=== PATIENT | female | born 1935 | race Caucasian/White ===

== ENCOUNTER 2017-03-09 20:20 | Inpatient (IN) | payer OTHER ==
[~2017-03-09] VITALS: Ht 172.7 cm; Wt 85.7 kg
[2017-03-09 21:22] LABS: HEMATOCRIT 42.4 % (36.0-46.0); MCH 29.8 PG (29.0-34.0); MCHC 32.3 G/DL (30.0-36.0); MCV 92.2 FL (83-99); MEAN PLAT.VOLUME 9.1 uM^3 (9.5-12.4); PLATELET COUNT 340 K/uL (156-360); RBC DIS.WIDTH-CV 15.2 % (11.8-14.6); RBC DIS.WIDTH-SD 51.2 % (39-53); WHITE BLOOD COUNT 14.1 K/uL (4.1-10.2)
[2017-03-09 21:35] LABS: CHLORIDE 104 mEq/L (99-109); POTASSIUM 4.3 mEq/L (3.7-5.4); SODIUM 143 mEq/L (136-147)
[2017-03-09 21:36] LABS: GLUCOSE 160 mg/dL (70-99)
[2017-03-09 21:38] LABS: ANION GAP 19 MEQ/L (2-14)
[2017-03-09 21:40] LABS: GFR ESTIMATE (CALCULATED) 36 mL/min/
[2017-03-09 21:41] LABS: UREA NITROGEN (BUN) 25 mg/dL (9-23)
[2017-03-09 21:42] LABS: TROP-I INTERPRETATION NEGATIVE; TROPONIN-I < 0.01 ng/mL (0.0-0.30)
[2017-03-09 22:21] LABS: ADD MIUA? YES; BILIRUBIN NEGATIVE; BLOOD MODERATE; COLOR AMBER ((YELLOW)); GLUCOSE (STRIP) NEGATIVE; KETONES NEGATIVE; LEUKOCYTES LARGE; NITRITE NEGATIVE; PROTEIN (STRIP) 100; SPECIFIC GRAVITY 1.015 (1.000-1.030); UROBILINOGEN 0.2 MG/DL (0.2-1.0)
[2017-03-09 23:12] LABS: BACTERIA 3+ /HPF; CASTS PRESENT /LPF; CRYSTALS NONE SEEN; EPITHELIAL CELLS RARE /HPF; MUCUS 1+ /LPF; UCUL ADDED? YES; WAXY CASTS 0-5 /LPF; WHITE BLOOD CELLS TNTC /HPF (0-5)
[2017-03-09 23:17] LABS: MAGNESIUM 2.5 mg/dL (1.3-2.7)
[2017-03-09 23:20] LABS: TOTAL BILIRUBIN 0.3 mg/dL (0.0-1.0)
[2017-03-09 23:21] LABS: ALKALINE PHOSPHATASE 75 IU/L (3-129)
[2017-03-09 23:24] LABS: DIRECT BILIRUBIN 0.1 mg/dL (0.0-0.3)
[2017-03-09 23:45] LABS: EOSINOPHIL (%) 0.8 % (0-5); EOSINOPHIL COUNT 0.1 K/uL (0-0.3); HEMATOCRIT 39.7 % (36.0-46.0); IMMATURE GRANULOCYTE (%) 0.6 % (0.0-0.7); IMMATURE GRANULOCYTE COUNT 0.1 K/uL; INSTRUMENT ABS NEUTROPHIL CT 11.9 K/uL; LYMPHOCYTE COUNT 1.9 K/uL (1.0-2.8); MCH 29.4 PG (29.0-34.0); MCHC 31.7 G/DL (30.0-36.0); MCV 92.8 FL (83-99); MONOCYTE (%) 6.8 % (3-12); NEUTROPHIL COUNT 11.9 K/uL (1.8-6.4); RBC DIS.WIDTH-CV 15.3 % (11.8-14.6); RED BLOOD COUNT 4.28 M/uL (3.80-5.20); WHITE BLOOD COUNT 15.1 K/uL (4.1-10.2)
[2017-03-10] VITALS (7 sets, daily range): BP systolic 137–162; BP diastolic 66–85
[2017-03-10 00:06] LABS: CARBON DIOXIDE (BICARBONATE) 23.4 MEQ/L (20-31)
[2017-03-10 00:11] LABS: PROTHROMBIN TIME 10.6 SEC (10.2-12.9)
[2017-03-10 00:14] LABS: PTT 26.1 SEC (25-37)
[2017-03-10 00:28] LABS: SALICYLATE < 5.0 MG/DL (15-30)
[2017-03-10 00:44] LABS: MEAN PLAT.VOLUME 9.6 uM^3 (9.5-12.4); PLAT.SUFFICIENCY ADEQUATE; PLATELET COUNT 271 K/uL (156-360)
[2017-03-10 07:02] LABS: POINT-OF-CARE METER ID UU14117124
[2017-03-10 07:50] LABS: ALKALINE PHOSPHATASE 65 IU/L (3-129); ANION GAP 19 MEQ/L (2-14); CHLORIDE 107 MEQ/L (99-109); GFR ESTIMATE (CALCULATED) 51 mL/min/; GLUCOSE 138 mg/dL (70-99); POTASSIUM 4.3 MEQ/L (3.7-5.4); SAMPLE HEMOLYSIS CHECK 0; SAMPLE ICTERIC CHECK 0; SAMPLE LIPEMIA CHECK 0; SODIUM 141 MEQ/L (136-147); TOTAL BILIRUBIN 0.4 MG/DL (0.0-1.0); UREA NITROGEN (BUN) 24 mg/dL (9-23)
[2017-03-10 09:11] LABS: HEMATOCRIT 37.1 % (36.0-46.0); MCH 29.3 PG (29.0-34.0); MCHC 32.1 G/DL (30.0-36.0); MCV 91.4 FL (83-99); MEAN PLAT.VOLUME 9.3 uM^3 (9.5-12.4); PLATELET COUNT 324 K/uL (156-360); RBC DIS.WIDTH-CV 15.2 % (11.8-14.6); RBC DIS.WIDTH-SD 50.7 % (39-53); RED BLOOD COUNT 4.06 M/uL (3.80-5.20); WHITE BLOOD COUNT 12.7 K/uL (4.1-10.2)
[2017-03-10 11:58] LABS: POINT-OF-CARE METER ID UU14188577
[2017-03-10] MEDS ORDERED: METFORMIN HCL500 MG PO (12:10)
[2017-03-10] MEDS ORDERED: LIPITOR10 MG PO (12:14)
[2017-03-10] MEDS ORDERED: MEMANTINE HCL5 MG PO (12:23)
[2017-03-10] MEDS ORDERED: DONEPEZIL HCL10 MG PO ×2 (12:27→14:52)
[2017-03-10] MEDS ORDERED: ASPIRIN325 MG PO (12:28)
[2017-03-10] MEDS ORDERED: HUMALOG MI100 UNIT/1 SQ ×2 (12:38→12:39)
[2017-03-10] MEDS ORDERED: LISINOPRIL-HCT1 EACH PO (14:49)
[2017-03-10 15:24] LABS: ANION GAP 15 MEQ/L (2-14); CHLORIDE 104 MEQ/L (99-109); GFR ESTIMATE (CALCULATED) 51 mL/min/; GLUCOSE 186 mg/dL (70-99); POTASSIUM 4.2 MEQ/L (3.7-5.4); SAMPLE HEMOLYSIS CHECK 0; SAMPLE ICTERIC CHECK 0; SAMPLE LIPEMIA CHECK 0; SODIUM 139 MEQ/L (136-147); UREA NITROGEN (BUN) 21 mg/dL (9-23)
[2017-03-10 17:57] LABS: POINT-OF-CARE METER ID UU14188577
[2017-03-10 22:23] LABS: POINT-OF-CARE METER ID UU14208753
[2017-03-11 05:58] VITALS: BP 162/84
[2017-03-11 06:05] LABS: POINT-OF-CARE METER ID UU14117124
[2017-03-11 06:50] LABS: BASOPHIL COUNT 0.1 K/uL (0-0.1); EOSINOPHIL (%) 4.7 % (0-5); EOSINOPHIL COUNT 0.5 K/uL (0-0.3); HEMATOCRIT 36.9 % (36.0-46.0); IMMATURE GRANULOCYTE (%) 0.6 % (0.0-0.7); IMMATURE GRANULOCYTE COUNT 0.1 K/uL; INSTRUMENT ABS NEUTROPHIL CT 5.8 K/uL; LYMPHOCYTE COUNT 3.5 K/uL (1.0-2.8); MCHC 32.8 G/DL (30.0-36.0); MCV 91.3 FL (83-99); MEAN PLAT.VOLUME 9.4 uM^3 (9.5-12.4); MONOCYTE (%) 6.5 % (3-12); MONOCYTE COUNT 0.7 K/uL (0-0.8); NEUTROPHIL COUNT 5.8 K/uL (1.8-6.4); PLATELET COUNT 315 K/uL (156-360); RBC DIS.WIDTH-CV 15.2 % (11.8-14.6); RBC DIS.WIDTH-SD 50.8 % (39-53); RED BLOOD COUNT 4.04 M/uL (3.80-5.20); WHITE BLOOD COUNT 10.6 K/uL (4.1-10.2)
[2017-03-11 07:39] LABS: ALKALINE PHOSPHATASE 63 IU/L (3-129); ANION GAP 12 MEQ/L (2-14); CHLORIDE 106 MEQ/L (99-109); GFR ESTIMATE (CALCULATED) 57 mL/min/; GLUCOSE 162 mg/dL (70-99); POTASSIUM 4.1 MEQ/L (3.7-5.4); SAMPLE HEMOLYSIS CHECK 0; SAMPLE ICTERIC CHECK 0; SAMPLE LIPEMIA CHECK 0; SODIUM 141 MEQ/L (136-147); UREA NITROGEN (BUN) 20 mg/dL (9-23)
[2017-03-11 07:41] LABS: TOTAL BILIRUBIN 0.3 MG/DL (0.0-1.0)
[2017-03-11 08:04] VITALS: BP 182/82
[2017-03-11 11:31] LABS: POINT-OF-CARE METER ID UU14188577
[2017-03-11 11:53] VITALS: BP 152/86
[2017-03-11 16:37] VITALS: BP 164/76
[2017-03-11 16:38] LABS: POINT-OF-CARE METER ID UU14188577
[2017-03-11 19:27] VITALS: BP 140/82
[2017-03-11 22:03] LABS: POINT-OF-CARE METER ID UU14117124
[2017-03-11 23:45] VITALS: BP 190/98
[2017-03-12 03:34] VITALS: BP 136/80
[2017-03-12 07:07] LABS: ANION GAP 11 MEQ/L (2-14); CHLORIDE 108 MEQ/L (99-109); POTASSIUM 3.6 MEQ/L (3.7-5.4); SAMPLE HEMOLYSIS CHECK 0; SAMPLE ICTERIC CHECK 0; SAMPLE LIPEMIA CHECK 0; SODIUM 141 MEQ/L (136-147)
[2017-03-12 07:13] LABS: GFR ESTIMATE (CALCULATED) > 59 mL/min/; GLUCOSE 140 mg/dL (70-99); UREA NITROGEN (BUN) 15 mg/dL (9-23)
[2017-03-12] MEDS ORDERED: CEFTIN500 MG PO (07:18)
[2017-03-12 07:25] LABS: HEMATOCRIT 38.6 % (36.0-46.0); MCH 29.5 PG (29.0-34.0); MCHC 32.9 G/DL (30.0-36.0); MCV 89.8 FL (83-99); MEAN PLAT.VOLUME 10.2 uM^3 (9.5-12.4); PLATELET COUNT 267 K/uL (156-360); RBC DIS.WIDTH-CV 15.2 % (11.8-14.6); RBC DIS.WIDTH-SD 50.4 % (39-53); WHITE BLOOD COUNT 10.3 K/uL (4.1-10.2)
[2017-03-12 08:17] VITALS: BP 198/100
[2017-03-12 11:30] VITALS: BP 180/90
[2017-03-12 16:15] VITALS: BP 148/80
== END 2017-03-12 18:37 | disposition home health service (06) | DRG 872 ==
LOC: EME 20:20 → EDOF 23:29 → ENRESERV 23:30 → CANRESERV 23:55 → ENRESERV 23:55 → 3EAST 03-10 01:13 → EDOF 03-10 01:13 → ENRESERV 03-10 01:17 → 3EAST 03-10 03:17
PROVIDERS: Emergency Medicine; Hospitalist; Pediatrics; Physician Assistant Medical
DX: A41.9 Sepsis, unspecified organism (principal); N39.0 Urinary tract infection, site not specified; N17.9 Acute kidney failure, unspecified; E87.2 Acidosis; R55 Syncope and collapse; E11.65 Type 2 diabetes mellitus with hyperglycemia; F03.90 Unspecified dementia, unspecified severity, without behavioral disturbance, psychotic disturbance, mood disturbance, and anxiety; I10 Essential (primary) hypertension; E78.5 Hyperlipidemia, unspecified; E66.9 Obesity, unspecified; Z96.649 Presence of unspecified artificial hip joint; Z91.81 History of falling; Z90.13 Acquired absence of bilateral breasts and nipples; Z85.3 Personal history of malignant neoplasm of breast; Z80.3 Family history of malignant neoplasm of breast; Z68.28 Body mass index [BMI] 28.0-28.9, adult; Z79.4 Long term (current) use of insulin; Z79.84 Long term (current) use of oral hypoglycemic drugs; Z79.82 Long term (current) use of aspirin
CPT/HCPCS: 71010; 74176; 80048; 80048 91; 80053; 80076; 81003; 82803; 82948; 83605; 83735; 84484; 85025; 85027; 85610; 85730; 87040; 87077; 87086; 87186; 93005; 99281; 99285; G0378; G0480; J0360; J0696; J1644; J1815; J7030; J7050; J7120

== ENCOUNTER 2017-08-26 10:04 | Emergency (ER) | payer OTHER ==
[~2017-08-26] VITALS: Ht 170.2 cm; Wt 85.0 kg
[~2017-08-26 10:04] MED LIST: ASPIRIN325 MG PO; CEFTIN500 MG PO; DONEPEZIL HCL10 MG PO; HUMALOG MI100 UNIT/1 SQ; LIPITOR10 MG PO; LISINOPRIL-HCT1 EACH PO; MEMANTINE HCL5 MG PO; METFORMIN HCL500 MG PO
[2017-08-26 10:59] LABS: BASOPHIL (%) 0.5 % (0-1); BASOPHIL COUNT 0.1 K/uL (0-0.1); EOSINOPHIL (%) 2.8 % (0-5); EOSINOPHIL COUNT 0.3 K/uL (0-0.3); HEMATOCRIT 36.3 % (36.0-46.0); HEMOGLOBIN 11.7 G/DL (11.9-15.5); IMMATURE GRANULOCYTE (%) 0.6 % (0.0-0.7); LYMPHOCYTE COUNT 2.4 K/uL (1.0-2.8); MCHC 32.2 G/DL (30.0-36.0); MCV 93.1 FL (83-99); MONOCYTE COUNT 0.6 K/uL (0-0.8); NEUTROPHIL (%) 64.1 % (45-76); PLATELET COUNT 279 K/uL (156-360); RBC DIS.WIDTH-CV 15.5 % (11.8-14.6); RBC DIS.WIDTH-SD 53.1 % (39-53); WHITE BLOOD COUNT 9.4 K/uL (4.1-10.2)
[2017-08-26 11:07] LABS: CHLORIDE 106 mEq/L (99-109); POTASSIUM 3.6 mEq/L (3.7-5.4); SODIUM 141 mEq/L (136-147)
[2017-08-26 11:08] LABS: GLUCOSE 180 mg/dL (70-99)
[2017-08-26 11:12] LABS: CREATININE 1.4 mg/dL (0.6-1.3); GFR ESTIMATE (CALCULATED) 39 mL/min/
[2017-08-26 11:13] LABS: UREA NITROGEN (BUN) 24 mg/dL (9-23)
[2017-08-26 11:18] LABS: TROP-I INTERPRETATION NEGATIVE; TROPONIN-I 0.01 ng/mL (0.0-0.30)
[2017-08-26 12:12] LABS: APPEARANCE SL.HAZY ((CLEAR)); BILIRUBIN NEGATIVE; BLOOD SMALL; COLOR YELLOW ((YELLOW)); GLUCOSE (STRIP) NEGATIVE; KETONES NEGATIVE; LEUKOCYTES MODERATE; NITRITE POSITIVE; PROTEIN (STRIP) 100; SPECIFIC GRAVITY 1.012 (1.000-1.030); UROBILINOGEN 0.2 MG/DL (0.2-1.0)
[2017-08-26 12:47] LABS: BACTERIA 3+ /HPF; EPITHELIAL CELLS RARE /HPF; HYALINE CASTS 0-5 /LPF; MUCUS TRACE /LPF; UCUL ADDED? YES
[2017-08-26 14:04] VITALS: BP 112/58
== END 2017-08-26 14:04 ==
LOC: EME 10:04
PROVIDERS: Emergency Medicine
DX: R55 Syncope and collapse (principal); N39.0 Urinary tract infection, site not specified; F03.90 Unspecified dementia, unspecified severity, without behavioral disturbance, psychotic disturbance, mood disturbance, and anxiety; E11.9 Type 2 diabetes mellitus without complications; Z79.4 Long term (current) use of insulin; I10 Essential (primary) hypertension; Z79.82 Long term (current) use of aspirin
CPT/HCPCS: 80048; 81003; 84484; 85025; 87077; 87086; 87186; 93005; 99281; 99284; J7030

== ENCOUNTER 2017-09-15 10:05 | Inpatient (IN) | payer OTHER ==
[~2017-09-15] VITALS: Ht 170.2 cm; Wt 94.3 kg
[2017-09-15 10:53] LABS: BASOPHIL (%) 0.6 % (0-1); BASOPHIL COUNT 0.1 K/uL (0-0.1); EOSINOPHIL (%) 3.3 % (0-5); EOSINOPHIL COUNT 0.4 K/uL (0-0.3); HEMATOCRIT 39.1 % (36.0-46.0); HEMOGLOBIN 12.4 G/DL (11.9-15.5); IMMATURE GRANULOCYTE (%) 0.6 % (0.0-0.7); LYMPHOCYTE (%) 34.2 % (15-42); LYMPHOCYTE COUNT 3.7 K/uL (1.0-2.8); MCH 29.7 PG (29.0-34.0); MCHC 31.7 G/DL (30.0-36.0); MCV 93.5 FL (83-99); MONOCYTE (%) 5.5 % (3-12); MONOCYTE COUNT 0.6 K/uL (0-0.8); NEUTROPHIL (%) 55.8 % (45-76); NEUTROPHIL COUNT 6.1 K/uL (1.8-6.4); PLATELET COUNT 281 K/uL (156-360); RBC DIS.WIDTH-CV 15.5 % (11.8-14.6); RBC DIS.WIDTH-SD 53.7 % (39-53); RED BLOOD COUNT 4.18 M/uL (3.80-5.20); WHITE BLOOD COUNT 10.8 K/uL (4.1-10.2)
[2017-09-15 11:01] LABS: PTT 20.5 SEC (25-37)
[2017-09-15 11:04] LABS: ALBUMIN 3.7 g/dL (3.2-4.8); CHLORIDE 109 mEq/L (99-109); POTASSIUM 3.6 mEq/L (3.7-5.4); SODIUM 144 mEq/L (136-147)
[2017-09-15 11:05] LABS: MAGNESIUM 1.9 mg/dL (1.3-2.7)
[2017-09-15 11:06] LABS: GLUCOSE 193 mg/dL (70-99)
[2017-09-15 11:07] LABS: TOTAL PROTEIN 6.6 g/dL (6.4-8.3)
[2017-09-15 11:08] LABS: TOTAL BILIRUBIN 0.3 mg/dL (0.0-1.0)
[2017-09-15 11:10] LABS: ALKALINE PHOSPHATASE 68 IU/L (3-129); CREATININE 1.4 mg/dL (0.6-1.3); GFR ESTIMATE (CALCULATED) 39 mL/min/
[2017-09-15 11:11] LABS: UREA NITROGEN (BUN) 24 mg/dL (9-23)
[2017-09-15 11:12] LABS: AST (GOT) 12 IU/L (2-34)
[2017-09-15 11:13] LABS: ALT (GPT) 15 IU/L (3-49); CREATINE KINASE 50 IU/L (1-294); TOTAL CK 50 IU/L (1-294); TROP-I INTERPRETATION NEGATIVE; TROPONIN-I < 0.01 ng/mL (0.0-0.30)
[2017-09-15 11:19] LABS: CK-MB 1.7 ng/mL (0.0-4.9); CKMB RELATIVE INDEX 3.4 (0.0-3.9)
[2017-09-15 11:22] LABS: APPEARANCE SL.HAZY ((CLEAR)); BILIRUBIN NEGATIVE; BLOOD NEGATIVE; COLOR GREEN ((YELLOW)); GLUCOSE (STRIP) NEGATIVE; KETONES NEGATIVE; LEUKOCYTES SMALL; NITRITE NEGATIVE; PROTEIN (STRIP) 30; SPECIFIC GRAVITY 1.014 (1.000-1.030); UROBILINOGEN 0.2 MG/DL (0.2-1.0)
[2017-09-15 11:27] LABS: BACTERIA 2+ /HPF; EPITHELIAL CELLS 1+ /HPF; MUCUS TRACE /LPF; RED BLOOD CELLS 0-5 /HPF (0-5); UCUL ADDED? YES; WHITE BLOOD CELLS 20-30 /HPF (0-5)
[2017-09-15] MEDS ORDERED: PROBIOTIC1 EAC3 PO (11:48)
[2017-09-15] MEDS ORDERED: LISINOPRIL40 MG PO (11:51)
[2017-09-15] MEDS ORDERED: TOPROL XL25 MG PO (11:51)
[2017-09-15] MEDS ORDERED: CRANBERRY CONC1 EAC1 PO (11:51)
[2017-09-15] MEDS ORDERED: [UNRECOGNIZED DRUG - OTHER] PO (11:52)
[2017-09-15 15:18] VITALS: BP 132/63
[2017-09-15 19:29] VITALS: BP 158/73
[2017-09-15 20:21] LABS: HDL CHOLESTEROL 41 MG/DL (Desirable>=50); LDL CHOLESTEROL 71 mg/dL (Desirable<100); NON-HDL CHOLESTEROL 114 mg/dL (Desirable<160); TOTAL CHOLESTEROL 155 mg/dL (Desirable<200); TRIGLYCERIDES 215 MG/DL (Normal: <150)
[2017-09-16] VITALS (8 sets, daily range): BP systolic 148–191; BP diastolic 70–89
[2017-09-16 05:19] LABS: HEMATOCRIT 36.3 % (36.0-46.0); HEMOGLOBIN 11.4 G/DL (11.9-15.5); MCH 29.3 PG (29.0-34.0); MCHC 31.4 G/DL (30.0-36.0); MCV 93.3 FL (83-99); PLATELET COUNT 278 K/uL (156-360); RBC DIS.WIDTH-CV 15.6 % (11.8-14.6); RBC DIS.WIDTH-SD 53.4 % (39-53); RED BLOOD COUNT 3.89 M/uL (3.80-5.20); WHITE BLOOD COUNT 10.6 K/uL (4.1-10.2)
[2017-09-16 05:59] LABS: CHLORIDE 109 MEQ/L (99-109); GFR ESTIMATE (CALCULATED) 57 mL/min/; GLUCOSE 164 mg/dL (70-99); POTASSIUM 3.9 MEQ/L (3.7-5.4); SODIUM 142 MEQ/L (136-147); UREA NITROGEN (BUN) 19 mg/dL (9-23)
[2017-09-17] VITALS (7 sets, daily range): BP systolic 121–186; BP diastolic 76–114
[2017-09-17 06:58] LABS: CHLORIDE 107 MEQ/L (99-109); CREATININE 1.1 MG/DL (0.6-1.3); GFR ESTIMATE (CALCULATED) 51 mL/min/; GLUCOSE 119 mg/dL (70-99); POTASSIUM 4.2 MEQ/L (3.7-5.4); SODIUM 140 MEQ/L (136-147); UREA NITROGEN (BUN) 18 mg/dL (9-23)
[2017-09-18 04:20] VITALS: BP 154/78
[2017-09-18 07:50] VITALS: BP 178/84
[2017-09-18] MEDS ORDERED: LEVETIRACETAM250 MG PO (09:30)
[2017-09-18] MEDS ORDERED: CEPHALEXIN500 MG PO (09:30)
[2017-09-18] MEDS ORDERED: BACTRIM,SEPT1 TABLE1 PO (09:36)
[2017-09-18 11:00] VITALS: BP 141/68
[2017-09-18 15:14] VITALS: BP 152/72
== END 2017-09-18 15:35 | disposition home health service (06) | DRG 871 ==
LOC: EME 10:05 → 5SOUTH 12:34 → 4EAST 12:34 → EDOF 12:34 → ENRESERV 12:35 → EDOF 12:51 → ENRESERV 12:52 → 4EAST 15:06 → ENRESERV 09-16 11:12 → 5SOUTH 09-16 22:27
PROVIDERS: Emergency Medicine; Hospitalist; Internal Medicine
DX: A41.51 Sepsis due to Escherichia coli [E. coli] (principal); I63.442 Cerebral infarction due to embolism of left cerebellar artery; F05 Delirium due to known physiological condition; E87.2 Acidosis; N17.9 Acute kidney failure, unspecified; N30.00 Acute cystitis without hematuria; E11.9 Type 2 diabetes mellitus without complications; E86.0 Dehydration; G30.9 Alzheimer's disease, unspecified; F02.80 Dementia in other diseases classified elsewhere, unspecified severity, without behavioral disturbance, psychotic disturbance, mood disturbance, and anxiety; E04.2 Nontoxic multinodular goiter; I10 Essential (primary) hypertension; I44.0 Atrioventricular block, first degree; Z96.643 Presence of artificial hip joint, bilateral; I95.9 Hypotension, unspecified; R00.1 Bradycardia, unspecified; R61 Generalized hyperhidrosis; Z79.4 Long term (current) use of insulin; Z79.82 Long term (current) use of aspirin; Z86.73 Personal history of transient ischemic attack (TIA), and cerebral infarction without residual deficits; Z85.3 Personal history of malignant neoplasm of breast; Z87.440 Personal history of urinary (tract) infections; Z87.442 Personal history of urinary calculi
CPT/HCPCS: 70450; 70551; 71045; 76770; 80048; 80053; 80061; 81003; 82550; 82553; 82948; 83036; 83605; 83735; 84484; 85025; 85027; 85610; 85730; 87040; 87077; 87086; 87186; 93005; 93306; 93880; 93882; 95819; 99281; 99285; J0360; J0696; J1650; J2543; J3370; J7030; J7040

== ENCOUNTER 2017-10-21 16:24 | Observation (INO) | payer OTHER ==
[~2017-10-21] VITALS: Ht 172.7 cm; Wt 84.0 kg
[~2017-10-21 16:24] MED LIST changes: -ASPIRIN325 MG PO; +BACTRIM,SEPT1 TABLE1 PO; +CEPHALEXIN500 MG PO; +CRANBERRY CONC1 EAC1 PO; +LEVETIRACETAM250 MG PO; +LISINOPRIL40 MG PO; +LO-DOSE ASPIRIN81 M2 PO; +PROBIOTIC1 EAC3 PO; +TOPROL XL50 MG PO; +[UNRECOGNIZED DRUG - OTHER] PO
[2017-10-21 17:17] LABS: HEMOGLOBIN 12.6 G/DL (11.9-15.5); MCH 30.1 PG (29.0-34.0); MCHC 32.3 G/DL (30.0-36.0); MCV 93.1 FL (83-99); PLATELET COUNT 323 K/uL (156-360); RBC DIS.WIDTH-CV 15.5 % (11.8-14.6); RBC DIS.WIDTH-SD 52.9 % (39-53); RED BLOOD COUNT 4.19 M/uL (3.80-5.20); WHITE BLOOD COUNT 12.3 K/uL (4.1-10.2)
[2017-10-21 17:32] LABS: ALBUMIN 3.9 g/dL (3.2-4.8)
[2017-10-21 17:33] LABS: CHLORIDE 106 mEq/L (99-109); POTASSIUM 4.2 mEq/L (3.7-5.4); SODIUM 141 mEq/L (136-147)
[2017-10-21 17:35] LABS: GLUCOSE 227 mg/dL (70-99); TOTAL PROTEIN 6.9 g/dL (6.4-8.3)
[2017-10-21 17:37] LABS: TOTAL BILIRUBIN 0.2 mg/dL (0.0-1.0)
[2017-10-21 17:40] LABS: ALKALINE PHOSPHATASE 78 IU/L (3-129); AST (GOT) 14 IU/L (2-34); CREATININE 1.4 mg/dL (0.6-1.3); GFR ESTIMATE (CALCULATED) 38 mL/min/; UREA NITROGEN (BUN) 27 mg/dL (9-23)
[2017-10-21 17:41] LABS: ALT (GPT) 15 IU/L (3-49)
[2017-10-21 18:01] LABS: TROP-I INTERPRETATION NEGATIVE; TROPONIN-I 0.01 ng/mL (0.0-0.30)
[2017-10-21 18:58] LABS: APPEARANCE CLEAR ((CLEAR)); BILIRUBIN NEGATIVE; BLOOD NEGATIVE; GLUCOSE (STRIP) 50; KETONES NEGATIVE; LEUKOCYTES NEGATIVE; NITRITE NEGATIVE; PROTEIN (STRIP) NEGATIVE; SPECIFIC GRAVITY 1.017 (1.000-1.030); UCUL ADDED? NO; UROBILINOGEN 0.2 MG/DL (0.2-1.0)
[2017-10-21 20:24] LABS: LIPASE 35 U/L (1.0-51.0)
[2017-10-21 23:07] LABS: TROP-I INTERPRETATION NEGATIVE; TROPONIN-I 0.01 ng/mL (0.0-0.30)
[2017-10-21 23:59] VITALS: BP 189/88
[2017-10-22 04:50] VITALS: BP 198/86
[2017-10-22 05:19] LABS: HEMATOCRIT 37.8 % (36.0-46.0); HEMOGLOBIN 12.1 G/DL (11.9-15.5); MCH 29.2 PG (29.0-34.0); MCV 91.3 FL (83-99); PLATELET COUNT 302 K/uL (156-360); RBC DIS.WIDTH-CV 15.3 % (11.8-14.6); RBC DIS.WIDTH-SD 51.1 % (39-53); RED BLOOD COUNT 4.14 M/uL (3.80-5.20); WHITE BLOOD COUNT 9.9 K/uL (4.1-10.2)
[2017-10-22 05:43] LABS: CHLORIDE 107 MEQ/L (99-109); GFR ESTIMATE (CALCULATED) 57 mL/min/; GLUCOSE 159 mg/dL (70-99); POTASSIUM 3.6 MEQ/L (3.7-5.4); SODIUM 140 MEQ/L (136-147); UREA NITROGEN (BUN) 19 mg/dL (9-23)
[2017-10-22 07:22] LABS: FOLIC ACID (FOLATE) 15.3 NG/ML (5.0-22.0)
[2017-10-22 08:20] VITALS: BP 186/89
[2017-10-22 11:45] VITALS: BP 128/62
== END 2017-10-22 14:45 | disposition home or self-care (01) ==
LOC: EME 16:24 → EDOF 22:25 → 4SOUTH 22:25 → ENRESERV 22:30 → 4SOUTH 23:43
PROVIDERS: Hospitalist
DX: R53.1 Weakness (principal); Z91.81 History of falling; N17.9 Acute kidney failure, unspecified; E87.2 Acidosis; R06.09 Other forms of dyspnea; I10 Essential (primary) hypertension; E11.9 Type 2 diabetes mellitus without complications; N26.1 Atrophy of kidney (terminal); F03.90 Unspecified dementia, unspecified severity, without behavioral disturbance, psychotic disturbance, mood disturbance, and anxiety; E78.5 Hyperlipidemia, unspecified; Z79.4 Long term (current) use of insulin
CPT/HCPCS: 70450; 71046; 71250; 72125; 73030; 73110; 73502; 74176; 80048; 80053; 81003; 82306; 82607; 82746; 82948; 83605; 83690; 83880; 84443; 84484; 85027; 85379; 87040; 93005; 93971; 99281; 99284; G0378; G8978 GP CK; G8979 GP CI; G8987 GO CM; G8988 CI; J0360; J1644; J1815; J7030; J7040

== ENCOUNTER 2018-01-18 19:37 | Observation (INO) | payer OTHER ==
[~2018-01-18] VITALS: Ht 165.1 cm; Wt 84.0 kg
[~2018-01-18 19:37] MED LIST changes: +METFORMIN HCL500 M1 PO; -METFORMIN HCL500 MG PO; +TOPROL XL25 MG PO; -TOPROL XL50 MG PO
[2018-01-18 20:17] LABS: HEMATOCRIT 39.9 % (36.0-46.0); HEMOGLOBIN 12.8 G/DL (11.9-15.5); MCHC 32.1 G/DL (30.0-36.0); MCV 93.4 FL (83-99); PLATELET COUNT 284 K/uL (156-360); RBC DIS.WIDTH-CV 15.4 % (11.8-14.6); RBC DIS.WIDTH-SD 52.9 % (39-53); RED BLOOD COUNT 4.27 M/uL (3.80-5.20); WHITE BLOOD COUNT 10.7 K/uL (4.1-10.2)
[2018-01-18 20:26] LABS: CHLORIDE 107 mEq/L (99-109); SODIUM 145 mEq/L (136-147)
[2018-01-18 20:28] LABS: GLUCOSE 231 mg/dL (70-99)
[2018-01-18 20:32] LABS: CREATININE 1.7 mg/dL (0.6-1.3); GFR ESTIMATE (CALCULATED) 31 mL/min/
[2018-01-18 20:33] LABS: UREA NITROGEN (BUN) 24 mg/dL (9-23)
[2018-01-18 20:39] LABS: TROP-I INTERPRETATION NEGATIVE; TROPONIN-I < 0.01 ng/mL (0.0-0.30)
[2018-01-18 22:16] LABS: APPEARANCE CLOUDY ((CLEAR)); BILIRUBIN NEGATIVE; BLOOD NEGATIVE; COLOR YELLOW ((YELLOW)); GLUCOSE (STRIP) NEGATIVE; KETONES 5; LEUKOCYTES LARGE; NITRITE POSITIVE; PROTEIN (STRIP) 100; SPECIFIC GRAVITY 1.017 (1.000-1.030); UROBILINOGEN 0.2 MG/DL (0.2-1.0)
[2018-01-18 23:05] LABS: AMORPHOUS URATES CRYSTALS 3+; BACTERIA 3+ /HPF; EPITHELIAL CELLS RARE /HPF; FINE GRANULAR CASTS 0-5 /LPF; HYALINE CASTS 0-5 /LPF; MUCUS NONE SEEN /LPF; RED BLOOD CELLS NONE SEEN /HPF (0-5); UCUL ADDED? YES; WHITE BLOOD CELLS TNTC /HPF (0-5)
[2018-01-18] MEDS ORDERED: KEPPRA500 MG PO (23:22)
[2018-01-19 02:48] VITALS: BP 130/84
[2018-01-19 07:06] VITALS: BP 149/68
[2018-01-19 10:55] LABS: HEMOGLOBIN 11.2 G/DL (11.9-15.5); MCH 29.1 PG (29.0-34.0); MCV 90.9 FL (83-99); PLATELET COUNT 255 K/uL (156-360); RBC DIS.WIDTH-CV 15.3 % (11.8-14.6); RBC DIS.WIDTH-SD 50.4 % (39-53); RED BLOOD COUNT 3.85 M/uL (3.80-5.20); WHITE BLOOD COUNT 10.1 K/uL (4.1-10.2)
[2018-01-19 11:22] LABS: CHLORIDE 108 MEQ/L (99-109); GFR ESTIMATE (CALCULATED) 51 mL/min/; GLUCOSE 156 mg/dL (70-99); POTASSIUM 4.4 MEQ/L (3.7-5.4); SODIUM 142 MEQ/L (136-147); UREA NITROGEN (BUN) 21 mg/dL (9-23)
[2018-01-19 11:23] LABS: CREATININE 1.1 MG/DL (0.6-1.3)
[2018-01-19 11:35] VITALS: BP 141/65
[2018-01-19 16:00] VITALS: BP 176/84
[2018-01-19 19:59] VITALS: BP 150/84
[2018-01-19 23:19] VITALS: BP 151/82
[2018-01-20 03:44] VITALS: BP 153/88
[2018-01-20 06:37] LABS: BASOPHIL (%) 0.5 % (0-1); BASOPHIL COUNT 0.1 K/uL (0-0.1); EOSINOPHIL (%) 2.9 % (0-5); EOSINOPHIL COUNT 0.3 K/uL (0-0.3); HEMATOCRIT 39.5 % (36.0-46.0); HEMOGLOBIN 12.7 G/DL (11.9-15.5); IMMATURE GRANULOCYTE (%) 0.4 % (0.0-0.7); LYMPHOCYTE (%) 26.7 % (15-42); LYMPHOCYTE COUNT 2.5 K/uL (1.0-2.8); MCH 28.9 PG (29.0-34.0); MCHC 32.2 G/DL (30.0-36.0); MONOCYTE (%) 6.8 % (3-12); MONOCYTE COUNT 0.6 K/uL (0-0.8); NEUTROPHIL (%) 62.7 % (45-76); NEUTROPHIL COUNT 5.9 K/uL (1.8-6.4); PLATELET COUNT 266 K/uL (156-360); RBC DIS.WIDTH-CV 14.8 % (11.8-14.6); RBC DIS.WIDTH-SD 48.8 % (39-53); RED BLOOD COUNT 4.39 M/uL (3.80-5.20); WHITE BLOOD COUNT 9.4 K/uL (4.1-10.2)
[2018-01-20 07:00] LABS: CHLORIDE 102 MEQ/L (99-109); CREATININE 1.1 MG/DL (0.6-1.3); GFR ESTIMATE (CALCULATED) 51 mL/min/; GLUCOSE 199 mg/dL (70-99); SODIUM 140 MEQ/L (136-147); UREA NITROGEN (BUN) 14 mg/dL (9-23)
[2018-01-20 07:16] VITALS: BP 149/81
[2018-01-20 12:00] VITALS: BP 132/66
[2018-01-20] MEDS ORDERED: CEFDINIR300 MG PO (12:23)
== END 2018-01-20 13:33 ==
LOC: EME → EDBD 19:37 → 5EAST 01-19 00:06 → EDOF 01-19 00:06 → ENRESERV 01-19 00:08 → EDOF 01-19 00:41 → ENRESERV 01-19 00:41 → EDOF 01-19 00:41 → 5EAST 01-19 00:41 → ENRESERV 01-19 00:42 → EDOF 01-19 01:14 → 5EAST 01-19 01:14 → ENRESERV 01-19 02:07 → 5EAST 01-19 02:26
PROVIDERS: Emergency Medicine; Hospitalist; Physician Assistant Medical
DX: R55 Syncope and collapse (principal); N39.0 Urinary tract infection, site not specified; B96.20 Unspecified Escherichia coli [E. coli] as the cause of diseases classified elsewhere; G30.9 Alzheimer's disease, unspecified; F02.80 Dementia in other diseases classified elsewhere, unspecified severity, without behavioral disturbance, psychotic disturbance, mood disturbance, and anxiety; Z87.440 Personal history of urinary (tract) infections; N17.9 Acute kidney failure, unspecified; E87.2 Acidosis; I10 Essential (primary) hypertension; E78.5 Hyperlipidemia, unspecified; Z85.3 Personal history of malignant neoplasm of breast; Z87.442 Personal history of urinary calculi; R32 Unspecified urinary incontinence; G40.909 Epilepsy, unspecified, not intractable, without status epilepticus; E11.65 Type 2 diabetes mellitus with hyperglycemia; Z86.73 Personal history of transient ischemic attack (TIA), and cerebral infarction without residual deficits; Z79.82 Long term (current) use of aspirin; Z79.84 Long term (current) use of oral hypoglycemic drugs; Z90.13 Acquired absence of bilateral breasts and nipples; Z90.710 Acquired absence of both cervix and uterus; Z96.659 Presence of unspecified artificial knee joint; Z96.643 Presence of artificial hip joint, bilateral
CPT/HCPCS: 70450; 71046; 74176; 80048; 81003; 82948; 83605; 84484; 85025; 85027; 87040; 87077; 87086; 87186; 93005; 99281; 99285; G0378; G8978 GP CM; G8979 GP CK; G8980 GP CM; G8987 GO CL; G8988 GO CJ; G8989 GO CL; J0696; J1644; J1815; J7120